=== PATIENT | female | born 1950 | race Caucasian/White ===

== ENCOUNTER 2023-04-02 12:59 | Emergency (ER) | payer OTHER ==
[~2023-04-02] VITALS: Ht 160 cm; Wt 45.4 kg
== END 2023-04-02 17:37 | disposition home or self-care (01) ==
LOC: ER 12:59
PROVIDERS: Emergency Medicine
DX: I16.9 Hypertensive crisis, unspecified (principal); I10 Essential (primary) hypertension; Z20.822 Contact with and (suspected) exposure to COVID-19; Z88.0 Allergy status to penicillin
CPT/HCPCS: 36415; 70450; 93005; 93041; 96365; 99284; J3490